=== PATIENT | female | born 1985 | race Caucasian/White ===

== ENCOUNTER → 2017-02-23 | Outpatient (CLI) | payer OTHER ==
[~2017-02-23] MED LIST: ACET-789 PO; DOCU-143 PO; FERR-74 PO; IBUP-1773 PO; PREN1TAB71 PO
--- NOTE | 2017-02-23 17:56 | Diagnostic Imaging Report ---
INDICATION: Small for gestational age. FINDINGS: Biometrical measurements correlate with an average age 38 weeks 1 day reflective of normal interval growth from the initial exam. Benitez gestation is in cephalic position. The amniotic fluid index of 9.3 is normal. The anterior placenta shows no abruption or previa. IMPRESSION: 38 week 1 day benitez viable IUP in cephalic position. No pathological finding demonstrated. Dictated by: Dictated on workstation # [id number]
== END ==
LOC: RAD 15:25
PROVIDERS: ATTEND Obstetrics & Gynecology
DX: O26.843 Uterine size-date discrepancy, third trimester (principal); Z3A.38 38 weeks gestation of pregnancy
CPT/HCPCS: 76805

== ENCOUNTER 2017-03-03 21:37 | Inpatient (IN) | payer OTHER ==
[~2017-03-03] VITALS: Ht 175.3 cm; Wt 79.9 kg
[2017-03-03 22:00] VITALS: BP 119/75
[2017-03-03] MEDS ORDERED: PREN1TAB71 PO (22:07)
[2017-03-03] MEDS ORDERED: D5 LR IV SOLUTION 1,000 ML IV ONE (23:09)
[2017-03-03] MEDS: D5 LR IV SOLUTION 1,000 ML IV SCH (23:20)
[2017-03-03] MEDS ORDERED: MINERAL OIL CONCENTRATE 99.9% 15 ML UDC TOP PRN (23:30)
[2017-03-03] MEDS ORDERED: LACTATED RINGERS 0 ML IV ONE (23:31)
[2017-03-03 23:44] LABS: BASOPHILS % (AUTO) 0 % (0-10); EOSINOPHILS # (AUTO) 0.1 10^3/uL (0.0-0.3); EOSINOPHILS % (AUTO) 1 % (0-10); LYMPHOCYTES # (AUTO) 1.7 X 10^3 (1.0-4.0); LYMPHOCYTES % (AUTO) 13 % (12-44); MEAN CORPUSCULAR HEMOGLOBIN 30 PG (25-34); MEAN CORPUSCULAR HGB CONC 33 G/DL (32-36); MEAN CORPUSCULAR VOLUME 91 FL (80-99); MEAN PLATELET VOLUME 12.2 FL (7.4-10.4); MONOCYTES % (AUTO) 8 % (0-12); NEUTROPHILS # (AUTO) 9.7 X 10^3 (1.8-7.8); NEUTROPHILS % (AUTO) 78 % (42-75); PLATELET COUNT 133 10^3/uL (130-400); RED BLOOD COUNT 3.72 10^6/uL (4.35-5.85); RED CELL DISTRIBUTION WIDTH 13.6 % (10.0-14.5); WHITE BLOOD COUNT 12.5 10^3/uL (4.3-11.0)
[2017-03-04] VITALS (53 sets, daily range): BP systolic 95–133; BP diastolic 50–93
[2017-03-04] MEDS ORDERED: LACTATED RINGERS 1,000 ML IV SCH ×2 (00:47→02:38)
[2017-03-04] MEDS ORDERED: MISOPROSTOL 100 MCG (CYTOTEC) TAB PO ONE (01:00)
[2017-03-04] MEDS ORDERED: SUFENTA 0.6MCG/ML BUPIVA 0.125 100 ML ONE (01:33)
[2017-03-04] MEDS ORDERED: BUPIVACAINE 0.25% 30 ML (SENSORCAINE) VIAL ONE (01:51)
[2017-03-04] MEDS ORDERED: fentaNYL INJECTION 100 MCG/2 ML AMP ONE (01:51)
[2017-03-04] MEDS ORDERED: METOCLOPRAMIDE INJ 10 MG/2 ML (REGLAN) IV PRN (02:45)
[2017-03-04] MEDS ORDERED: EPIDURAL (SUFENTA 0.6MCG/ML BUPIVA 0.125%) 100 ML BAG EPI PRN (02:45)
[2017-03-04] MEDS ORDERED: diphenhydrAMINE 50 MG/ML INJ (BENADRYL) IV PRN (02:45)
[2017-03-04] MEDS ORDERED: NALOXONE 0.4 MG/ML 1 ML (NARCAN) VIAL IV PRN ×2 (02:45)
[2017-03-04] MEDS ORDERED: ONDANSETRON 4 MG/2 ML (SDV) Z0FRAN IV PRN (02:45)
[2017-03-04] MEDS ORDERED: TERBUTALINE INJ 1 MG/ML (BRETHINE) AMP ONE (03:29)
[2017-03-04] MEDS: D5 LR IV SOLUTION 1,000 ML IV SCH (03:45)
[2017-03-04] MEDS ORDERED: TERBUTALINE INJ 1 MG/ML (BRETHINE) AMP SC ONE (05:45)
[2017-03-04] MEDS ORDERED: CATHETER FLUSH 10 ML SYR IV SCH ×2 (06:00→14:00)
[2017-03-04] MEDS ORDERED: LIDOCAINE/EPI 1%-1:200,000 (XYLOCAINE) 30 ML VIAL ONE (07:32)
--- NOTE | 2017-03-04 08:11 | Diagnostic Imaging Report ---
EXAMINATION: Biophysical profile. INDICATION: Possible membranes. Check fluid and position. FINDINGS: Amniotic fluid index is 14.3 CM. The position is cephalic. The placenta is anterior. There is no placenta previa. The biophysical profile parameters do meet criteria with total score of 8 out of 8. heart rate is 132 beats per minutes. IMPRESSION: Biophysical profile score of 8 out of 8. Dictated by: Dictated on workstation # [id number]
--- NOTE | 2017-03-04 08:58 | History & Physical-OB ---
OB - Chief Complaint & HPI Date Date of Admission: Date of Admission: Mar 03, 2017 at 23:30 Chief Complaint/History OB-Reason for Admission/Chief: Rupture of Membranes Hx : 1 Hx Para: 0 Expected Date of Delivery: Mar 04, 2017 Gestational Age in Weeks: 40 Gestational Age in Days: 0 Other reason for admission: Chaparrita is a 31 y/o G1 @ 40w0d who presented overnight and was admitted around [address] Ding. There was concern for ROM however this was ruled out (and SROM occurred at 0200). BPP showed BARBRE 14cm, but NST was nonreactive and she was kept for IOL. Denies complaints this AM. Epidural working well. c/b Rh neg status (received RhoGAM), gest thrombocytopenia (stable). History of Labs A neg Antibody neg RNI HIV neg RPR NR Hep B/C neg/neg GC/CT neg/neg GBS neg Allergies and Home Medications Allergies Coded Allergies: No Known Drug Allergies (Unverified , 03/03/17) Home Medications Vit/Iron Fumarate/FA 1 Each Tablet, 1 EACH PO DAILY, (Reported) OB - History Hx of Present Care: Yes Ultrasounds: Normal mid trimester US Obstetrical Complications: Other (Gestational thrombocytopenia, Rh neg, RNI) Medical Complications: None Information Induced Hypertension: No Maternal Gestational Diabetes: No Hemorrhage: No Obstetrical History Hx : 1 Hx Para: 0 Hx Total # of Abortions (Spona: 0 Delivery History Adverse Rxn to Tranfusion: No Patient Past Medical History see above Social History/Family History HIV/AIDS: No Recent Infectious Disease Expo: No Alcohol Use: Denies Use Recreational Drug Use: No Immunizations Hepatitis A: No Hepatitis B: No Tetanus Booster (TDap): Less than 5yrs Rubella: not immune RPR/VDRL: Negative GBS Status: Negative HBsAG: Negative OB - Admission Exam Physical Exam Vitals: Vital Signs 03/03/17 03/04/17 03/04/17 03/04/17 22:00 03:00 06:15 07:15 Temp 97.3 Pulse 108 Resp 18 B/P (MAP) 127/73 Pulse Ox 100 O2 Delivery Room Air O2 Flow Rate 15.00 HEENT: NCAT Abdomen: Gravid Extremities: Normal Reflexes: Normal Cervical Dilatation: 9cm Effacement: 100% Station: +1 Membranes: Ruptured Amniotic Fluid: Clear Accelerations: Accelerations Present Decelerations: Early Decelerations Short Term Variability: Present [facility] Variability: Average (6-25) Contractions on Admission: < 5 Minutes Apart Labs Laboratory Tests Test 03/03/17 23:20 Range/Units White Blood Count 12.5 H 4.3-11.0 10^3/uL Red Blood Count 3.72 L 4.35-5.85 10^6/uL Hemoglobin 11.3 L 11.5-16.0 G/DL Hematocrit 34 L 35-52 % Mean Corpuscular Volume 91 80-99 FL Mean Corpuscular Hemoglobin 30 25-34 PG Mean Corpuscular Hemoglobin Concent 33 32-36 G/DL Red Cell Distribution Width 13.6 10.0-14.5 % Platelet Count 133 130-400 10^3/uL Mean Platelet Volume 12.2 H 7.4-10.4 FL Neutrophils (%) (Auto) 78 H 42-75 % Lymphocytes (%) (Auto) 13 12-44 % Monocytes (%) (Auto) 8 0-12 % Eosinophils (%) (Auto) 1 0-10 % Basophils (%) (Auto) 0 0-10 % Neutrophils # (Auto) 9.7 H 1.8-7.8 X 10^3 Lymphocytes # (Auto) 1.7 1.0-4.0 X 10^3 Monocytes # (Auto) 1.0 0.0-1.0 X 10^3 Eosinophils # (Auto) 0.1 0.0-0.3 10^3/uL Basophils # (Auto) 0.0 0.0-0.1 10^3/uL OB - Assessment/Plan/Diagnosis Plan Other Plan 31 y/o G1 @ 40w0d admitted last evening in setting of concern for ROM and nonreactive NST Gestational thrombocytopenia, stable GBS neg Rh neg RNI Labor augmented with cytotec by Dr. Ding, did require terb overnight for late decelerations, resolved ASVD Epidural working well No augmentation currently MMR pp, RhoGAM if indicated DAVE ARGUETA MD Mar 04, 2017 08:58
[2017-03-04] MEDS ORDERED: IBUP-1773 PO (09:00)
[2017-03-04] MEDS ORDERED: FERR-74 PO (09:00)
[2017-03-04] MEDS ORDERED: DOCU-143 PO (09:00)
[2017-03-04] MEDS ORDERED: ACET-789 PO (09:00)
[2017-03-04] MEDS ORDERED: OXYTOCIN/NORMAL SALINE 500 ML IV ONE ×2 (09:37→10:31)
--- NOTE | 2017-03-04 10:16 | OB Labor & Delivery Record ---
Vag Delivery Note Vag Delivery Note Date of Delivery: 03/04/17 Preoperative Diagnosis: Chaparrita Schofield is a 31 y/o G1 @ 40w0d with non-reactive FHR tracing, augmentation of labor, GBS neg, gestational thrombocytopenia, Rh D negative, RNI Postoperative Diagnosis: Same Surgeon: Dave Tapia MD Anesthesia: Epidural Delivery Type: Spontaneous vaginal delivery Findings: Viable male , apgars 8/9, weight 3255g Lacerations: None Intact placenta with 3 vessel cord. No nuchal cord, body cord or shoulder dystocia Estimated Blood Loss: 300 ml Complications: None Condition: Stable Description of Procedure: The patient is a 31 y/o G1 @ 40w0d who presented with possible SROM. It was ruled out, however FHR tracing was nonreactive and she was kept for augmentation of labor by Dr. Ding who was contact lens polisher. She did receive a dose of cytotec, and following this several hours later had late decelerations and received terbutaline and these resolved. She did receive an epidural. SROM occurred with clear fluid. No further augmentation was needed. She progressed to complete dilatation and began to push. She was then set up for delivery. The infant's head was delivered atraumatically in the occiput anterior position. The shoulders and remainder of the 's body were then delivered without difficulty. Upon delivery, the head was held below the level of the perineum and the mouth and nares were bulb suctioned. The cord was doubly clamped and cut on the mother's abdomen after a pause of 30-60 seconds. An intact placenta with 3-vessel cord delivered via Puja and there was found to be minimal bleeding. Vigorous fundal massage was performed and the fundus was found to be firm. IV oxytocin was given. Examination of the vagina and perineum revealed no lacerations. Sponge, instrument and needle counts were correct. Mom and baby were both in stable condition in the labor suite. Vitals - Labs Vital Signs - I&O Vital Signs Date Time Temp Pulse Resp B/P (MAP) Pulse Ox O2 Delivery O2 Flow Rate FiO2 03/04/17 09:00 114 20 122/82 100 Room Air 03/04/17 08:45 124 20 131/81 100 Room Air 03/04/17 08:30 92 20 120/75 100 Room Air 03/04/17 08:15 101 20 118/71 100 Room Air 03/04/17 08:00 97 20 116/71 100 Room Air 03/04/17 07:45 100 20 109/69 100 Room Air 03/04/17 07:30 98.5 112 20 121/73 92 Room Air 03/04/17 07:15 108 127/73 100 Room Air 03/04/17 07:00 92 122/70 99 Room Air 03/04/17 06:45 100 123/61 100 Room Air 03/04/17 06:30 86 122/68 100 Room Air 03/04/17 06:19 Room Air 03/04/17 06:15 93 113/68 100 Non Rebreather 15.00 03/04/17 06:00 102 113/65 100 Non Rebreather 15.00 03/04/17 05:45 109 116/64 100 Non Rebreather 15.00 03/04/17 05:30 108 109/66 100 Non Rebreather 15.00 03/04/17 05:15 126 104/56 100 Non Rebreather 15.00 03/04/17 05:00 111 113/71 100 Non Rebreather 15.00 03/04/17 04:45 113 112/67 100 Non Rebreather 15.00 03/04/17 04:30 113 114/61 100 Non Rebreather 15.00 03/04/17 04:15 117 114/61 100 Non Rebreather 15.00 03/04/17 04:00 101 113/54 100 Non Rebreather 15.00 03/04/17 03:45 111 101/50 100 Non Rebreather 15.00 03/04/17 03:35 77 99/56 100 Non Rebreather 15.00 03/04/17 03:30 74 108/58 100 Non Rebreather 15.00 03/04/17 03:20 64 103/57 100 Non Rebreather 15.00 03/04/17 03:15 90 105/60 100 Non Rebreather 15.00 03/04/17 03:05 57 106/59 03/04/17 03:00 97.3 85 95/69 100 Room Air 03/04/17 02:53 Non Rebreather 15.00 03/04/17 02:45 90 113/67 99 Room Air 03/04/17 02:40 99 116/64 100 Room Air 03/04/17 02:30 110 124/69 100 Room Air 03/04/17 02:25 93 133/70 99 Room Air 03/04/17 02:20 93 128/69 98 Room Air 03/04/17 02:15 103 130/84 97 Room Air 03/04/17 02:10 108 126/86 99 Room Air 03/04/17 02:05 104 124/93 99 Room Air 03/04/17 02:00 93 124/73 99 Room Air 03/03/17 22:00 98.1 88 18 119/75 Room Air I & O 03/04/17 07:00 Intake Total 3000 ml Balance 3000 ml Labs Laboratory Tests 03/03/17 23:20: White Blood Count 12.5H, Red Blood Count 3.72L, Hemoglobin 11.3L, Hematocrit 34L , Mean Corpuscular Volume 91, Mean Corpuscular Hemoglobin 30, Mean Corpuscular Hemoglobin Concent 33, Red Cell Distribution Width 13.6, Platelet Count 133, Mean Platelet Volume 12.2H, Neutrophils (%) (Auto) 78H, Lymphocytes (%) (Auto) 13, Monocytes (%) (Auto) 8, Eosinophils (%) (Auto) 1, Basophils (%) (Auto) 0, Neutrophils # (Auto) 9.7H, Lymphocytes # (Auto) 1.7, Monocytes # (Auto) 1.0, Eosinophils # (Auto) 0.1, Basophils # (Auto) 0.0 DAVE TAPIA MD Mar 04, 2017 10:16
--- NOTE | 2017-03-04 10:17 | Discharge Inst-Women's Service ---
Discharge Inst-Women's Serv Depart Medication/Instructions New, Converted or Re-Newed RX: RX on Chart Final Diagnosis Nonreactive FHR tracing, TIUP, , gestational thrombocytopenia Consults/Follow Up Additional Follow Up: Yes Orders/Referrals [address] Tapia for visit Activity Activity: Activity as Tolerated Driving Instructions: You May Drive NO SMOKING: NO SMOKING Nothing Inside Vagina: No Douching, No Mellen, No Tampons Diet Discharge Diet: No Restrictions Symptoms to Report to : Swelling Increased, Bleeding Excessive, Pain Increased, Fever Over 101 Degrees F, Pain/Pressure in Chest, Vaginal Bleeding Increase, Dizziness/Fainting, Nausea/Vomiting, Shortness of Breath For Any Problems or Questions: Contact Your Physician DAVE TAPIA MD Mar 04, 2017 10:17
[2017-03-04] MEDS ORDERED: BENZOCAINE/MENTHOL (DERMOPLAST) 56 ML CAN TP ONE (12:43)
[2017-03-04] MEDS ORDERED: OXYTOCIN/NORMAL SALINE 500 ML IV SCH (13:20)
[2017-03-04] MEDS ORDERED: IBUPROFEN 600 MG (MOTRIN) TAB PO ONE (13:24)
[2017-03-04] MEDS: IBUPROFEN 600 MG (MOTRIN) TAB PO SCH ×2 (13:27→18:31)
[2017-03-04] MEDS ORDERED: BENZOCAINE/MENTHOL (DERMOPLAST) 56 ML CAN TP PRN (13:30)
[2017-03-04] MEDS ORDERED: WITCH HAZEL(TUCKS) 40 EA JAR TOP PRN (13:30)
[2017-03-04] MEDS ORDERED: TETANUS,DIPTH,PERTUSS P/F (BOOSTRIX) 0.5 ML VIAL IM ONE (13:30)
[2017-03-04] MEDS ORDERED: MEASLES,MUMPS,RUBELLA 1 EA INJ SQ ONE (13:30)
[2017-03-04] MEDS ORDERED: APAP 300 MG/CODEINE 30 MG (TYLENOL #3) TAB PO PRN (13:30)
[2017-03-04] MEDS: DOCUSATE SODIUM 100 MG (COLACE) CAP PO SCH (21:00)
[2017-03-05 00:48] VITALS: BP 103/66
[2017-03-05] MEDS: IBUPROFEN 600 MG (MOTRIN) TAB PO SCH ×4 (00:48→18:21)
[2017-03-05 05:55] VITALS: BP 113/78
[2017-03-05 06:23] LABS: BASOPHILS % (AUTO) 0 % (0-10); EOSINOPHILS # (AUTO) 0.1 10^3/uL (0.0-0.3); EOSINOPHILS % (AUTO) 1 % (0-10); LYMPHOCYTES # (AUTO) 1.6 X 10^3 (1.0-4.0); LYMPHOCYTES % (AUTO) 14 % (12-44); MEAN CORPUSCULAR HEMOGLOBIN 30 PG (25-34); MEAN CORPUSCULAR HGB CONC 32 G/DL (32-36); MEAN CORPUSCULAR VOLUME 94 FL (80-99); MEAN PLATELET VOLUME 12.4 FL (7.4-10.4); MONOCYTES # (AUTO) 0.7 X 10^3 (0.0-1.0); MONOCYTES % (AUTO) 6 % (0-12); NEUTROPHILS % (AUTO) 79 % (42-75); PLATELET COUNT 95 10^3/uL (130-400); RED BLOOD COUNT 3.11 10^6/uL (4.35-5.85); RED CELL DISTRIBUTION WIDTH 13.8 % (10.0-14.5); WHITE BLOOD COUNT 11.4 10^3/uL (4.3-11.0)
--- NOTE | 2017-03-05 08:12 | Progress Note-Standard ---
Standard Progress Note Progress Notes/Assess & Plan Progress/Assessment & Plan Patient doing well this AM. Reports light lochia, pain well controlled. Ambulating and voiding freely. Vital Sign - Last 24 Hours 03/04/17 03/04/17 03/04/17 03/04/17 08:15 08:30 08:45 09:00 Pulse 101 92 124 114 Resp 20 20 20 20 B/P (MAP) 118/71 120/75 131/81 122/82 Pulse Ox 100 100 100 100 O2 Delivery Room Air Room Air Room Air Room Air 03/04/17 03/04/17 03/04/17 03/04/17 09:15 09:30 09:45 10:15 Temp 99.8 Pulse 116 104 118 120 Resp 20 20 20 18 B/P (MAP) 123/80 127/72 123/65 108/71 Pulse Ox 98 O2 Delivery Room Air Room Air Room Air Room Air 03/04/17 03/04/17 03/04/17 03/04/17 10:30 10:45 11:00 11:15 Temp 99.4 Pulse 118 108 96 100 Resp 18 18 18 18 B/P (MAP) 114/74 112/63 113/68 111/61 O2 Delivery Room Air Room Air Room Air Room Air 03/04/17 03/04/17 03/04/17 03/04/17 11:30 11:45 12:00 12:15 Pulse 106 115 90 105 Resp 18 18 18 18 B/P (MAP) 122/59 111/61 112/63 96/61 O2 Delivery Room Air Room Air Room Air Room Air 03/04/17 03/04/17 03/04/17 03/04/17 12:30 13:15 16:30 21:00 Temp 98.5 97.2 99.2 Pulse 114 104 98 Resp 18 18 18 18 B/P (MAP) 110/68 109/68 100/68 122/74 Pulse Ox 100 99 O2 Delivery Room Air Room Air Room Air Room Air 03/05/17 03/05/17 00:48 05:55 Temp 98.9 97.7 Pulse 101 89 Resp 18 18 B/P (MAP) 103/66 113/78 O2 Delivery Room Air Laboratory Tests Test 03/05/17 05:57 Range/Units White Blood Count 11.4 H 4.3-11.0 10^3/uL Red Blood Count 3.11 L 4.35-5.85 10^6/uL Hemoglobin 9.4 L 11.5-16.0 G/DL Hematocrit 29 L 35-52 % Mean Corpuscular Volume 94 80-99 FL Mean Corpuscular Hemoglobin 30 25-34 PG Mean Corpuscular Hemoglobin Concent 32 32-36 G/DL Red Cell Distribution Width 13.8 10.0-14.5 % Platelet Count 95 L 130-400 10^3/uL Mean Platelet Volume 12.4 H 7.4-10.4 FL Neutrophils (%) (Auto) 79 H 42-75 % Lymphocytes (%) (Auto) 14 12-44 % Monocytes (%) (Auto) 6 0-12 % Eosinophils (%) (Auto) 1 0-10 % Basophils (%) (Auto) 0 0-10 % Neutrophils # (Auto) 9.0 H 1.8-7.8 X 10^3 Lymphocytes # (Auto) 1.6 1.0-4.0 X 10^3 Monocytes # (Auto) 0.7 0.0-1.0 X 10^3 Eosinophils # (Auto) 0.1 0.0-0.3 10^3/uL Basophils # (Auto) 0.0 0.0-0.1 10^3/uL Uterine fundus firm and below umbilicus Diagnosis: PPD 1 NVD P: Continue routine PP care Anticipate dc later today. CARLA CHIRINOS DO Mar 05, 2017 8:12 am
[2017-03-05] MEDS: FERROUS SULF 325 MG (IRON) TAB PO SCH (10:01)
[2017-03-05] MEDS: DOCUSATE SODIUM 100 MG (COLACE) CAP PO SCH ×2 (10:01→20:22)
[2017-03-05 12:30] VITALS: BP 107/71
[2017-03-05 18:25] VITALS: BP 117/81
[2017-03-06] MEDS: IBUPROFEN 600 MG (MOTRIN) TAB PO SCH ×3 (00:15→11:56)
[2017-03-06 00:17] VITALS: BP 112/74
[2017-03-06 06:00] VITALS: BP 110/68
--- NOTE | 2017-03-06 08:30 | Progress Note-Standard ---
Standard Progress Note Progress Notes/Assess & Plan Progress/Assessment & Plan Patient doing well this AM. Reports light lochia, pain well controlled. Ambulating and voiding freely. Infant having issues feeding, and patient is , so she was kept until today. Vital Sign - Last 24 Hours 03/05/17 03/05/17 03/06/17 03/06/17 12:30 18:25 00:17 06:00 Temp 98.6 97.6 97.2 96.9 Pulse 97 93 97 77 Resp 18 18 18 18 B/P (MAP) 107/71 117/81 112/74 110/68 Pulse Ox 98 100 98 98 O2 Delivery Room Air Room Air Room Air Room Air Uterine fundus firm and below umbilicus Diagnosis: PPD 2 NVD P: Continue routine PP care Anticipate dc later today. CARLA CHIRINOS DO Mar 06, 2017 8:30 am
[2017-03-06] MEDS: FERROUS SULF 325 MG (IRON) TAB PO SCH (09:03)
[2017-03-06] MEDS: DOCUSATE SODIUM 100 MG (COLACE) CAP PO SCH (09:03)
[2017-03-06] MEDS ORDERED: MEASLES,MUMPS,RUBELLA 1 EA INJ ONE (11:24)
[2017-03-06 11:53] VITALS: BP 115/77
--- OUTSIDE RECORDS SUMMARY | 2017-04-04 01:30 | XMS REPORT ---
Author Author Star Witt [facility] Address [address] [place], [place] [id number] Care Team Providers Care Access Services Representative Name Role Phone Star Witt PCP Unavailable Allergies and Adverse Reactions Name Reaction Notes SULFA (SULFONAMIDES) Plan of Treatment Planned Activity Comments Planned Date Planned Time Plan/Goal C-REACTIVE PROTEIN 06/05/2014 12:00 AM ECHO EXAM OF ABDOMEN 06/05/2014 12:00 AM Medications Active Name Start Date Estimated Completion Date SIG Comments Bactrim DS oral tablet 800-160 mg take 1 tablet by oral route once daily Name Start Date Expiration Date SIG Comments Protonix oral tablet,delayed release (DR/EC) 40 mg 06/06/2014 09/04/2014 take 1 tablet (40 mg) by oral route once daily for 30 days acyclovir oral tablet 800 mg 06/07/2014 06/21/2014 take 1 tablet by oral route 5 times a day for 14 days prednisone 10 mg oral tablet 06/07/2014 06/17/2014 Take 4 tablets (40 mg) once daily x 2 days, then take 2 tablets (20 mg) once daily x 4 days, then take 1 tablet (10 mg) once daily x 4 day Discontinued Name Start Date Discontinued Date SIG Comments Medrol ([place]) oral tablets,dose pack 4 mg 06/06/2014 06/07/2014 take as directed Problem List Description Status Onset Abdominal Pain Active Vital Signs Date Time BP-Sys(mm[Hg] BP-Joya(mm[Hg]) HR(bpm) RR(rpm) Temp WT HT HC BMI BSA BMI Percentile O2 Sat(%) 06/06/2014 1:47:00 PM 116 mmHg 66 mmHg 102 bpm 16 rpm 98.4 F 134 lbs 69 in 19.79 kg/m2 1.72 m2 98 % Social History Name Description Comments Tobacco Never smoker History of Procedures Date Ordered Description Order Status 06/05/2014 12:00 AM COMPLETE CBC W/AUTO DIFF WBC Returned 06/05/2014 12:00 AM COMPREHEN METABOLIC PANEL Returned 06/05/2014 12:00 AM ASSAY OF AMYLASE Returned 06/05/2014 12:00 AM ASSAY OF LIPASE Returned 06/06/2014 12:00 AM US EXAM PELVIC COMPLETE Returned 06/06/2014 12:00 AM US EXAM ABDOM COMPLETE Returned Results Summary Data and Description Results 06/06/2014 8:35 AM WBC 5.2 RBC 4.46 HGB 13.60 g/dLHCT 40.70 %MCV 91.0 fLMCH 30.50 pgMCHC 33.40 g/dLRDW CV 13.60 %MPV 11.60 fLPLT 174 %NEUT 56.90 %%LYMP 32.30 %%MONO 8.10 %%EOS 2.50 %%BASO 0.20 %#NEUT 2.94 #LYMP 1.67 #MONO 0.42 #EOS 0.13 #BASO 0.01 GLUCOSE 95.0 mg/dLSODIUM 138.0 mmol/LPOTASSIUM 4.40 mmol/ LCHLORIDE 105.0 mmol/LCO2 25.0 mmol/LBUN 12.0 mg/dLCREATININE 1.0 mg/dLSGOT/AST 23.0 IU/LSGPT/ALT 17.0 IU/LALK PHOS 62.0 IU/LTOTAL PROTEIN 7.60 g/dLALBUMIN 4.40 g/dLTOTAL BILI 1.0 mg/dLCALCIUM 9.30 mg/dLeGFR 60 LIPASE 14.0 U/LAMYLASE 32 IU/LC REACTIVE PROTEIN <0.5 MG/DL History Of Immunizations Not available. 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
--- OUTSIDE RECORDS SUMMARY | 2017-04-04 01:30 | XMS REPORT | Continuity of Care Document ---
Author Author [facility] Address Unknown Phone Unavailable Allergies Medications Problems Procedures Results Encounters ACCT No. Visit Date/Time Discharge Status Pt. Type Provider Facility Loc./Unit Complaint [id number] 06/06/2014 14:38:52 06/06/2014 23: 59:59 CLS Outpatient Star Witt
== END 2017-03-06 13:00 | disposition home or self-care (01) | DRG 775 ==
LOC: WSo 21:37 → LDRP 21:37 → WSo 23:30 → LDRP 03-04 12:50
PROVIDERS: ADMIT Obstetrics & Gynecology; ATTEND Obstetrics & Gynecology
PROC: 10E0XZZ Delivery of Products of Conception, External Approach (ICD-10-PCS; principal; 2017-03-04)
DX: O99.113 Other diseases of the blood and blood-forming organs and certain disorders involving the immune mechanism complicating pregnancy, third trimester (principal); D69.6 Thrombocytopenia, unspecified; O36.0930 Maternal care for other rhesus isoimmunization, third trimester, not applicable or unspecified; O76 Abnormality in fetal heart rate and rhythm complicating labor and delivery; Z3A.40 40 weeks gestation of pregnancy; Z37.0 Single live birth; Z23 Encounter for immunization
CPT/HCPCS: 36415; 76819; 85025; 86850; 86900; 86901; 90707; 99212